=== PATIENT | male | born 1990 | race African-American/Black ===

== ENCOUNTER 2017-05-10 06:28 | Emergency (ER) | payer OTHER ==
[~2017-05-10] VITALS: Ht 160 cm; Wt 118.3 kg
[2017-05-10] MEDS ORDERED: MOTRIN800 MG PO (08:50)
[2017-05-10] MEDS ORDERED: FLEXERIL10 MG PO (08:50)
[2017-05-10 09:08] VITALS: BP 139/71
== END 2017-05-10 09:10 | disposition home or self-care (01) ==
LOC: EME 06:28
DX: M79.671 Pain in right foot (principal); M25.561 Pain in right knee
CPT/HCPCS: 73564; 73630; 99281; 99284

== ENCOUNTER 2017-09-25 12:56 | Emergency (ER) | payer OTHER ==
[~2017-09-25] VITALS: Ht 162.6 cm; Wt 52.2 kg
[~2017-09-25 12:56] MED LIST: FLEXERIL10 MG PO; MOTRIN800 MG PO
[2017-09-25] MEDS ORDERED: MOTRIN600 MG PO (14:54)
[2017-09-25 15:06] VITALS: BP 152/83
== END 2017-09-25 15:07 | disposition home or self-care (01) ==
LOC: EME 12:56
DX: R07.9 Chest pain, unspecified (principal); F17.200 Nicotine dependence, unspecified, uncomplicated
CPT/HCPCS: 71046; 93005; 99281; 99285

== ENCOUNTER 2017-09-27 20:15 | Emergency (ER) | payer OTHER ==
[~2017-09-27] VITALS: Ht 162.6 cm; Wt 113.0 kg
[~2017-09-27 20:15] MED LIST changes: +MOTRIN600 MG PO
[2017-09-27 21:29] LABS: HEMATOCRIT 41.9 % (38.0-50.0); HEMOGLOBIN 14.1 G/DL (12.5-16.6); MCH 29.1 PG (29.0-34.0); MCHC 33.7 G/DL (30.0-36.0); MCV 86.6 FL (86-99); PLATELET COUNT 282 K/uL (156-360); RBC DIS.WIDTH-CV 13.9 % (11.8-14.6); RBC DIS.WIDTH-SD 44.1 % (39-53); RED BLOOD COUNT 4.84 M/uL (4.00-5.50)
[2017-09-27 21:39] LABS: ALBUMIN 3.8 g/dL (3.2-4.8); CHLORIDE 106 mEq/L (99-109); POTASSIUM 3.7 mEq/L (3.7-5.4); SODIUM 142 mEq/L (136-147)
[2017-09-27 21:42] LABS: GLUCOSE 90 mg/dL (70-99); TOTAL PROTEIN 7.7 g/dL (6.4-8.3)
[2017-09-27 21:44] LABS: TOTAL BILIRUBIN 0.2 mg/dL (0.0-1.0)
[2017-09-27 21:45] LABS: ALKALINE PHOSPHATASE 86 IU/L (3-129); CREATININE 0.9 mg/dL (0.6-1.3); GFR ESTIMATE (CALCULATED) > 59 mL/min/ (58.99-99999)
[2017-09-27 21:46] LABS: UREA NITROGEN (BUN) 11 mg/dL (9-23)
[2017-09-27 21:47] LABS: AST (GOT) 30 IU/L (2-34)
[2017-09-27 21:48] LABS: ALT (GPT) 51 IU/L (3-49)
[2017-09-27 23:22] LABS: APPEARANCE CLEAR ((CLEAR)); BILIRUBIN NEGATIVE; BLOOD NEGATIVE; COLOR YELLOW ((YELLOW)); GLUCOSE (STRIP) NEGATIVE; KETONES NEGATIVE; LEUKOCYTES NEGATIVE; NITRITE NEGATIVE; PROTEIN (STRIP) 30; SPECIFIC GRAVITY 1.032 (1.000-1.030); UCUL ADDED? NO; UROBILINOGEN 0.2 MG/DL (0.2-1.0)
[2017-09-27 23:23] LABS: TROP-I INTERPRETATION NEGATIVE; TROPONIN-I < 0.01 ng/mL (0.0-0.30)
[2017-09-27 23:29] LABS: LIPASE 19 U/L (1.0-51.0)
[2017-09-28 00:42] LABS: TROP-I INTERPRETATION NEGATIVE; TROPONIN-I < 0.01 ng/mL (0.0-0.30)
[2017-09-28 00:54] VITALS: BP 120/56
== END 2017-09-28 00:58 | disposition home or self-care (01) ==
LOC: EME 20:15
PROVIDERS: Nurse Practitioner Family
DX: R07.9 Chest pain, unspecified (principal); R10.13 Epigastric pain; R11.2 Nausea with vomiting, unspecified; R19.7 Diarrhea, unspecified; F17.200 Nicotine dependence, unspecified, uncomplicated
CPT/HCPCS: 71046; 80053; 81003; 83690; 84484; 85027; 93005; 99281; 99284